=== PATIENT | male | born 1950 | race Caucasian/White ===

== ENCOUNTER 2017-04-10 11:54 | Day surgery (SDC) | payer BC ==
[2017-04-03 11:09] LABS: HEMATOCRIT 38.1 % (40.0-51.0); HEMOGLOBIN 12.9 g/dL (13.6-17.8)
[2017-04-03 11:16] LABS: BUN (BLOOD UREA NITROGEN) 20 MG/DL (6-23); CALCIUM, SERUM 8.9 MG/DL (8.5-10.4); CHLORIDE, SERUM 103 MMOL/L (96-112); CO2 (CARBON DIOXIDE) 28 MMOL/L (24-34); CREATININE 0.92 MG/DL (0.70-1.30); GFR AFRICAN AMERICAN 100 ML/MIN (>=60); GFR NON AFRICAN AMERICAN 86 ML/MIN (>=60); GLUCOSE, SERUM 138 MG/DL (60-99); POTASSIUM, SERUM 4.9 MMOL/L (3.5-5.3); SODIUM, SERUM 137 MMOL/L (135-148)
--- NOTE | ~2017-04-10 | OP ---
Record Of Operation [facility] [address] [place]. 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 NAME OF OPERATION: 1. Wide excision of left lower lip squamous cell carcinoma with frozen section. 2. Excision of additional 3 o'clock and 9 o'clock margins for permanent section. 3. Reconstruction of left lower lip with advancement flap and M-plasty flap reconstruction. FINDINGS: 1.7 cm wide x 2.7 cm tall excision, full thickness of left lower lip. INDICATIONS: This 66-year-old gentleman, has a biopsy-proven squamous carcinoma of the left lower lip and needs removal with frozen sections and reconstruction. His history is significant in February 2011 he had a large right lower lip squamous cell carcinoma which was well differentiated and was removed along with the entire lip shave (vermilionectomy) performed the same time. Approximately seven months later he developed a mass in the right neck and this proved to be metastatic squamous cell carcinoma and underwent a right radical neck dissection with postop radiation therapy. This opposite left lower lip squamous carcinoma needs to be treated aggressively. Examination of the neck clinically is negative. The pros and cons, alternatives, benefits, risks, limitations, and complications were discussed at length with the patient. No guarantees expressed. The patient understands and wishes to proceed. Proper consent obtained. DESCRIPTION OF PROCEDURE: He was taken into the operating room and given general oral endotracheal anesthesia in the supine position. The entire face and neck were prepped with Hibiclens and saline followed by isopropyl alcohol. None of these solutions got in his eyes. Sterile drapes were applied. The lola border was marked out on the lower lip from oral [id number]-pnfk commissure with a marking pen. The tumor of the lower lip was palpated and involved the vermilion and vermilion border of the lower lip. 3 to 4 mm of clinical margin of safety was marked out around this and this resulted in a 1.7 cm wide x 2.7 cm tall resection to be accomplished. The lower lip was injected with 1% Xylocaine with 1:100,000 epinephrine. Bilateral mental nerve blocks were accomplished with 0.5% Marcaine with 1:200,000 epinephrine. The #10 blade was used to do a complete [id number]-bot-[id number] excision of this tumor involving skin, subcutaneous fat, muscle, and mucosa in the oral cavity side. Inferiorly a M-plasty was created with a #15 blade. The specimen was oriented with a suture at the 12 o'clock position and the pathologist was brought into the room for orientation and to perform frozen sections. Record Of Operation [address] [place]. [address] NAME: SUMANTH NAVARRO : 50 STATUS : [facility]#: [id number] AGE: 66 ADM/REG DATE : 04/10/17 MR#: [id number] REPORT SERV DATE: 04/16/17 DICTATED BY: Yasmani DOAN DATE: 04/16/17 REPORT STATUS : Draft TRANSCRIBED BY: LEAH DATE: 04/16/17 Frozen sections returned showing margins free of tumor. Reconstruction was done by loosely approximating the mucosa with 5-0 chromic, with the knots on the oral cavity side. Bilateral advancement flap was created with a Stutsman needle tip cautery and the flaps were advanced and secured with 3-0 and 4-0 Vicryl. It should be noted, that the vermilion border had been marked additionally with hash garcia with a #15 blade. Selective perfectly align the vermilion border which was accomplished. The M-plasty was treated with 4-0 Vicryl and 5-0 Vicryl. The skin edges were coapted with 6-0 Prolene. In the lola area additional 3 o'clock and 9 o'clock margins were taken deep and sent for permanent pathology. This facilitated closure, which was accomplished with 6-0 Vicryl deep and 6-0 Vicryl on the lola surface. The wounds were cleansed with hydrogen peroxide and dried. Mastisol and paper tape were applied in an antitension fashion followed by Tegaderm. He was awakened, extubated, and taken recovery room in good condition having tolerated the procedure well. Estimated blood loss was 15 mL and hemostasis had been obtained with the electrocautery. The labial arteries did not bleed significantly and he has had previous coronary artery disease and this may be part of the reason that he had bled minimally. He was awakened, extubated, and taken recovery room in good condition having tolerated the procedure well. Home going instructions included cephalexin, hydrocodone and Zofran. Recheck in the office in six days. He is to keep his lips still and have a mechanical soft diet. GURWINDER/LEAH Yasmani Doan M.D. / [id number] CC: Miranda Guadarrama M.D.
[~2017-04-10 11:54] MED LIST: ACCU20 PO; ACCUPRIL40 MG PO; ALIGN4 MG PO; ASAB PO; COREG12 PO; COREG25 PO; FISH OIL1000 M1 OR; FISH-EPA1000 MG PO; GLUMETZA1000 MG PO; GLUMETZA500 MG PO; HCTZ12.5 PO; JANUVIA50 PO; MULTIPLE VIT PO; PEP20 PO; PEPCID COMPLET1 EACH PO; PLEND5 PO; PRILO PO; TAZTIA X3 PO; VITAMIN D2000 UNIT PO; VITE PO; VITE200U PO; ZYRTEC ALLGY10 MG PO; ZYRTEC10 M2 PO
== END 2017-04-10 20:55 | disposition home or self-care (01) ==
LOC: SDC 11:54
PROVIDERS: Specialist
PROC: 0CB1XZZ Excision of Lower Lip, External Approach (ICD-10-PCS; 2017-04-10)
PROC: 0CB4XZZ Excision of Buccal Mucosa, External Approach (ICD-10-PCS; 2017-04-10)
PROC: 0CX Mouth and Throat, Transfer (ICD-10-PCS; principal; 2017-04-10 13:45)
DX: C00.1 Malignant neoplasm of external lower lip (principal); C77.0 Secondary and unspecified malignant neoplasm of lymph nodes of head, face and neck; I11.9 Hypertensive heart disease without heart failure; M19.90 Unspecified osteoarthritis, unspecified site; E11.9 Type 2 diabetes mellitus without complications; H90.3 Sensorineural hearing loss, bilateral; I25.10 Atherosclerotic heart disease of native coronary artery without angina pectoris; E78.00 Pure hypercholesterolemia, unspecified; Z95.1 Presence of aortocoronary bypass graft; Z90.49 Acquired absence of other specified parts of digestive tract; Z98.890 Other specified postprocedural states; Z87.891 Personal history of nicotine dependence; Z88.8 Allergy status to other drugs, medicaments and biological substances; Z79.899 Other long term (current) drug therapy; Z79.82 Long term (current) use of aspirin
CPT/HCPCS: 80048; 82962; 85014; 85018; 88305; 88331; 88332; 88341; 88342; 93005; J0690; J2250; J2370; J2405; J2710; J3010